=== PATIENT | female | born 1955 | race Caucasian/White ===

== ENCOUNTER 2022-02-27 04:47 | Inpatient (IN) | payer MEDICARE ==
[~2022-02-27] VITALS: Ht 165.1 cm; Wt 65.8 kg
[2022-02-27] MEDS ORDERED: CEFTRIAXONE 2 G PREMIX 50 ML IV ONE (06:45)
[2022-02-27] MEDS ORDERED: VANCOMYCIN 1G PREMIX 200 ML IV ONE (06:45)
[2022-02-27] MEDS ORDERED: SODIUM CHLORIDE 0.9% 1000ML BAG (SEPSIS BOLUS) IV ONE (06:45)
[2022-02-27 07:13] LABS: BASOPHILS % 0.2 % (0.0-2.0); EOSINOPHILS % 0.1 % (0.0-5.0); HEMATOCRIT. 36.9 % (36.0-48.0); HEMOGLOBIN. 12.6 g/dL (12.0-16.0); MEAN CORPUSCULAR HEMOGLOBIN 29.6 pg (28.0-32.0); MEAN PLATELET VOLUME 8.7 fl (7.4-10.4); MONOCYTES % 4.2 % (2.0-8.0); NEUTROPHILS % 83.5 % (40.0-76.0); PLATELET 410 x1000/uL (130-400); RED BLOOD CELL COUNT 4.25 mill/uL (4.2-5.4); RED CELL DISTRIBUTION WIDTH 12.9 % (11.6-14.6)
[2022-02-27] MEDS ORDERED: CEFTRIAXONE 2 G in DEXTROSE 5% WATER 50 ML IV NR (07:15)
[2022-02-27 08:10] LABS: CHLORIDE 103 mEq/L (98-107)
[2022-02-27 10:27] LABS: CLARITY URINE CLEAR (CLEAR); COLOR URINE YELLOW (YELLOW); KETONES URINE NEGATIVE (NEGATIVE); LEUKOCYTE ESTERASE URINE 1+ (NEGATIVE); NITRITE URINE NEGATIVE (NEGATIVE); OCCULT BLOOD URINE NEGATIVE (NEGATIVE); PROTEIN URINE NEGATIVE (NEGATIVE); SPECIFIC GRAVITY URINE 1.009 (1.005-1.030); UROBILINOGEN URINE 0.2 E.U./dL (0.2-1.0)
[2022-02-27] MEDS ORDERED: PIPERACILLIN/TAZOBACTAM 3.375 G in DEXTROSE 5% WATER 50 ML IV SCH (11:30)
[2022-02-27] MEDS ORDERED: CLONIDINE 0.1MG TABLET PO PRN (11:30)
[2022-02-27] MEDS ORDERED: MAGNESIUM/ALUMINUM HYDROXIDE/SIMETHICONE 30ML UDC PO PRN (11:30)
[2022-02-27] MEDS ORDERED: HYDROCODONE/ACETAMINOPHEN 5/325MG TABLET PO PRN (11:30)
[2022-02-27] MEDS ORDERED: ACETAMINOPHEN 325MG TABLET PO PRN (11:30)
[2022-02-27] MEDS ORDERED: TRAMADOL 50MG TABLET PO PRN (11:30)
[2022-02-27] MEDS ORDERED: ONDANSETRON HCL 4MG/2ML INJ IV PRN (11:30)
[2022-02-27] MEDS ORDERED: DOCUSATE SODIUM 100MG CAPSULE PO PRN (11:30)
[2022-02-27] MEDS ORDERED: GUAIFENESIN 200MG/10ML SUGAR FREE UDC PO PRN (11:30)
[2022-02-27] MEDS ORDERED: NALOXONE HCL 0.4MG/ML VIAL IV PRN (11:45)
[2022-02-27] MEDS ORDERED: PIPERACILLIN/TAZ 3.375G PREMIX 50 ML IV NR (11:45)
[2022-02-27] MEDS: ENOXAPARIN 40MG/0.4ML SYR SUBCUT SCH (11:47)
[2022-02-27 18:00] VITALS: BP 140/60
[2022-02-27 20:00] VITALS: BP 128/53
[2022-02-27] MEDS ORDERED: PIPERACILLIN/TAZOBACTAM 3.375G in DEXT 5% WATER 50ML IV SCH (21:00)
[2022-02-27] MEDS: PIPERACILLIN/TAZOBACTAM 3.375G in DEXT 5% WATER 50ML IV SCH (22:34)
[2022-02-28] VITALS: BP 102/57
[2022-02-28] MEDS ORDERED: VANCOMYCIN 1GM PMX (XELLIA) 200 ML IV SCH
[2022-02-28] MEDS: VANCOMYCIN 1GM PMX (XELLIA) 200 ML IV SCH ×2 (03:12→17:15)
[2022-02-28 04:00] VITALS: BP 163/69
[2022-02-28] MEDS: PIPERACILLIN/TAZOBACTAM 3.375G in DEXT 5% WATER 50ML IV SCH ×3 (06:19→21:19)
[2022-02-28 06:58] LABS: BASOPHILS % 0.4 % (0.0-2.0); EOSINOPHILS % 1.4 % (0.0-5.0); HEMATOCRIT. 32.5 % (36.0-48.0); HEMOGLOBIN. 11.1 g/dL (12.0-16.0); LYMPHOCYTES % 23.8 % (20.0-50.0); MEAN CORPUSCULAR HEMOGLOBIN 29.5 pg (28.0-32.0); MEAN PLATELET VOLUME 8.3 fl (7.4-10.4); NEUTROPHILS % 67.4 % (40.0-76.0); PLATELET 381 x1000/uL (130-400); RED BLOOD CELL COUNT 3.77 mill/uL (4.2-5.4); RED CELL DISTRIBUTION WIDTH 12.9 % (11.6-14.6)
[2022-02-28 07:19] LABS: CHLORIDE 104 mEq/L (98-107)
[2022-02-28 07:39] LABS: HDL CHOLESTEROL 37 mg/dL (40-59); LDL CHOLESTEROL 55 mg/dL (5-100)
[2022-02-28 08:00] VITALS: BP 134/59
[2022-02-28] MEDS: ENOXAPARIN 40MG/0.4ML SYR SUBCUT SCH (09:00)
[2022-02-28] MEDS ORDERED: IOHEXOL-350 100 ML BOTTLE ONE (11:19)
[2022-02-28 12:00] VITALS: BP 159/65
[2022-02-28] MEDS ORDERED: IODIXANOL 320MG/ML 100 ML BOTTLE IV ONE ×2 (12:07→13:20)
[2022-02-28] MEDS ORDERED: LIDOCAINE HCL 1% 20ML VIAL (Pyxis) INJ ONE (12:32)
[2022-02-28] MEDS ORDERED: MIDAZOLAM HCL 2 MG/2 ML VIAL ONE (12:33)
[2022-02-28] MEDS ORDERED: FENTANYL CITRATE/PF 50MCG/ML 2ML VIAL ONE (12:33)
[2022-02-28] MEDS ORDERED: HEPARIN 1000 UNITS/ML 10ML ONE (12:34)
[2022-02-28 16:00] VITALS: BP 166/74
[2022-02-28] MEDS ORDERED: DEXTROSE 50% WATER 50ML SYRINGE IV PRN (18:15)
[2022-02-28 20:00] VITALS: BP 101/65
[2022-02-28] MEDS: INSULIN LISPRO 100 UNITS/ML SUBCUT SCH (21:00)
[2022-02-28] MEDS: BLOOD SUGAR DIAGNOSTIC STRIP TEST SCH (21:19)
[2022-03-01] VITALS: BP 115/67
[2022-03-01 04:00] VITALS: BP 159/66
[2022-03-01] MEDS: PIPERACILLIN/TAZOBACTAM 3.375G in DEXT 5% WATER 50ML IV SCH ×2 (05:23→13:04)
[2022-03-01] MEDS: BLOOD SUGAR DIAGNOSTIC STRIP TEST SCH ×3 (06:30→18:17)
[2022-03-01 07:23] LABS: HEMATOCRIT 34.3 % (36.0-48.0); HEMOGLOBIN 11.7 g/dL (12.0-16.0); MEAN CORPUSCULAR HEMOGLOBIN 29.3 pg (28.0-32.0); MEAN CORPUSCULAR VOLUME 85.5 fL (81.0-99.0); PLATELET 378 x1000/uL (130-400); RED BLOOD CELL COUNT 4.01 mill/uL (4.2-5.4); RED CELL DISTRIBUTION WIDTH 12.8 % (11.6-14.6)
[2022-03-01 07:39] LABS: CHLORIDE 101 mEq/L (98-107)
[2022-03-01 08:00] VITALS: BP 142/64
[2022-03-01] MEDS: ENOXAPARIN 40MG/0.4ML SYR SUBCUT SCH (08:27)
[2022-03-01] MEDS: AMLODIPINE 10MG TABLET PO SCH ×2 (08:29→08:30)
[2022-03-01] MEDS: INSULIN LISPRO 100 UNITS/ML SUBCUT SCH ×3 (09:32→18:19)
[2022-03-01 12:00] VITALS: BP 129/57
[2022-03-01] MEDS: VANCOMYCIN 1GM PMX (XELLIA) 200 ML IV SCH (12:00)
[2022-03-01 15:46] VITALS: BP 119/55
[2022-03-01] MEDS ORDERED: AMOX1TAB16 PO (17:40)
[2022-03-01 18:42] VITALS: BP 119/55
== END 2022-03-01 19:20 | disposition home health service (06) | DRG 253 ==
LOC: ER 04:47 → 6EST 07:45 → EDBEDREQTM 07:49 → EDBEDREQ 07:49 → ENRESERV 14:49
PROVIDERS: ADMIT Hospitalist; ATTEND Hospitalist
PROC: 047K3ZZ Dilation of Right Femoral Artery, Percutaneous Approach (ICD-10-PCS; principal; 2022-02-28)
PROC: B41G1ZZ Fluoroscopy of Left Lower Extremity Arteries using Low Osmolar Contrast (ICD-10-PCS; 2022-02-28)
PROC: B41F1ZZ Fluoroscopy of Right Lower Extremity Arteries using Low Osmolar Contrast (ICD-10-PCS; 2022-02-28)
PROC: 04JY3ZZ Inspection of Lower Artery, Percutaneous Approach (ICD-10-PCS; 2022-02-28)
DX: E11.52 Type 2 diabetes mellitus with diabetic peripheral angiopathy with gangrene (principal); E44.1 Mild protein-calorie malnutrition; L03.115 Cellulitis of right lower limb; I96 Gangrene, not elsewhere classified; E11.40 Type 2 diabetes mellitus with diabetic neuropathy, unspecified; I10 Essential (primary) hypertension; L03.031 Cellulitis of right toe; I16.0 Hypertensive urgency; E11.65 Type 2 diabetes mellitus with hyperglycemia; Z68.24 Body mass index [BMI] 24.0-24.9, adult; Z89.411 Acquired absence of right great toe; Z86.718 Personal history of other venous thrombosis and embolism; Z79.4 Long term (current) use of insulin
CPT/HCPCS: 36415; 37224; 71045; 73630; 75635; 75710; 80048; 80053; 80061; 80202; 81003; 82962; 83036; 83605; 85025; 85027; 85347; 93005; 93923; 93970; 97162; 99285; C1714; C1725; C1760; C1769; C1887; C1893; C1894; J0696; J1644; J1650; J1815; J2250; J2543; J3010; J3370; J3490; J7030; J7060; Q9967